=== PATIENT | male | born 1975 | race American Indian/Alaskan Native ===

== ENCOUNTER 2018-03-27 17:59 | Emergency (ER) | payer SELFPAY ==
[2018-03-27] MEDS ORDERED: TESSALON PERLES PO ONE (23:37)
[2018-03-27] MEDS ORDERED: IBUPROFEN PO ONE (23:37)
--- NOTE | 2018-03-28 00:26 | Emergency Department Report ---
- General Chief Complaint: Sore Throat Stated Complaint: COLD/BODY PAIN Time Seen by Provider: 03/27/18 23:16 Source: patient Mode of arrival: Ambulatory Limitations: No Limitations - History of Present Illness Initial Comments: This is a 42-year-old male nontoxic, well nourished in appearance, no acute signs of distress presents to the ED with c/o of productive cough, sore throat, body aches, rhinorrhea, nasal congestion x2 days. Patient describes productive cough as yellow mucus production. Patient denies any sick contact. Patient denies any recent travels, long car, recent hospital stays. Patient denies any calf pain or calf tenderness. Patient denies any chest pain, short of breath, fever, chills, nausea, vomiting, hemoptysis, numbness, tingling, headache or stiff neck. Patient denies any allergies or PMH. MD Complaint: cough, sore throat, rhinorrhea, nasal congestion -: days(s) (2) Severity: mild Severity scale (0 -10): 3 Quality: aching Consistency: constant Improves With: nothing Worsens With: nothing Associated Symptoms: rhinorrhea, nasal congestion, sore throat, cough. denies: fever, chills, myalgias, diaphoresis, headache, stiff neck, chest pain, shortness of breath, abdominal pain, nausea, vomiting, diarrhea, dysuria, rash, confusion, right sweats, weight loss, epistaxis, hoarseness, ear pain Treatments Prior to Arrival: none - Related Data Previous Rx's Medication Instructions Recorded Last Taken Type Azithromycin [Zithromax Z-ANNIA] 250 mg PO DAILY #6 tablet 03/28/18 Unknown Rx Benzonatate [Tessalon Perle] 100 mg PO Q8H PRN #20 capsule 03/28/18 Unknown Rx Ibuprofen [Motrin] 600 mg PO Q8H PRN #20 tablet 03/28/18 Unknown Rx Nystas/Diphen/Xyl Visc/Mylanta 15 ml MM Q4H PRN 5 Days ml 03/28/18 Unknown Rx [Magic Mouthwash] Allergies Allergy/AdvReac Type Severity Reaction Status Date / Time No Known Allergies Allergy Unverified 03/27/18 18:28 ED Review of Systems ROS: Stated complaint: COLD/BODY PAIN Other details as noted in HPI Constitutional: denies: chills, fever Eyes: denies: eye pain, eye discharge, vision change ENT: throat pain, congestion. denies: ear pain Respiratory: cough. denies: shortness of breath, wheezing Cardiovascular: denies: chest pain, palpitations Endocrine: no symptoms reported Gastrointestinal: denies: abdominal pain, nausea, diarrhea Genitourinary: denies: urgency, dysuria Musculoskeletal: denies: back pain, joint swelling, arthralgia Skin: denies: rash, lesions Neurological: denies: headache, weakness, paresthesias Psychiatric: denies: anxiety, depression Hematological/Lymphatic: denies: easy bleeding, easy bruising ED Past Medical Hx - Past Medical History Previous Medical History?: No - Surgical History Past Surgical History?: Yes Additional Surgical History: jaw - Social History Smoking Status: Current Every Day Smoker Substance Use Type: None - Medications Home Medications: Home Medications Medication Instructions Recorded Confirmed Last Taken Type Azithromycin [Zithromax Z-ANNIA] 250 mg PO DAILY #6 tablet 03/28/18 Unknown Rx Benzonatate [Tessalon Perle] 100 mg PO Q8H PRN #20 capsule 03/28/18 Unknown Rx Ibuprofen [Motrin] 600 mg PO Q8H PRN #20 tablet 03/28/18 Unknown Rx Nystas/Diphen/Xyl Visc/Mylanta 15 ml MM Q4H PRN 5 Days ml 03/28/18 Unknown Rx [Magic Mouthwash] ED Physical Exam - General Limitations: No Limitations General appearance: alert, in no apparent distress - Head Head exam: Present: atraumatic, normocephalic - Eye Eye exam: Present: normal appearance - Expanded ENT Exam Expanded Ear exam: Present: normal external inspection Mouth exam: Present: normal external inspection, tongue normal. Absent: drooling, trismus, muffled voice Teeth exam: Present: normal inspection Throat exam: Positive: tonsillar erythema, other (Uvula midline. no abscess or swelling noted.). Negative: tonsillomegaly, tonsillar exudate, R peritonsillar mass, L peritonsillar mass - Neck Neck exam: Present: normal inspection, full ROM. Absent: tenderness, meningismus, lymphadenopathy - Respiratory Respiratory exam: Present: normal lung sounds bilaterally. Absent: respiratory distress, wheezes, rales, rhonchi, stridor, chest wall tenderness, accessory muscle use, decreased breath sounds, prolonged expiratory - Cardiovascular Cardiovascular Exam: Present: regular rate, normal rhythm, normal heart sounds. Absent: irregular rhythm, systolic murmur, diastolic murmur, rubs, gallop - Extremities Exam Extremities exam: Present: normal inspection, full ROM - Back Exam Back exam: Present: normal inspection, full ROM - Neurological Exam Neurological exam: Present: alert, oriented X3 - Psychiatric Psychiatric exam: Present: normal affect, normal mood - Skin Skin exam: Present: warm, dry, intact, normal color. Absent: rash ED Course Vital Signs 03/27/18 18:26 Temperature 99.5 F Pulse Rate 92 H Respiratory 18 Rate Blood Pressure 142/95 O2 Sat by Pulse 99 Oximetry - Reevaluation(s) Reevaluation #1: 03/28/18 00:26 Patient is speaking in full sentences with no signs of distress noted. ED Medical Decision Making - Medical Decision Making This is a 42-year-old female that presents with bronchitis and pharyngitis. Patient is stable and was examined by me. Chest x-ray has been obtained and dictated by radiologist with normal exam. Patient is notified of x-ray results with no questions noted. Due to patient having symptoms of upper respiratory infection and worsening I will treat patient empirically with zpak. Patient was instructed to increase hydration, rest and take Motrin for fever episodes. Patient received motrin and tesslone perrls in the ED. Vitals stable. Patient is nonfebrile and normal heart rate. Patient was instructed Follow-up with a primary care doctor in 3-5 days or if symptoms worsen and continue return to emergency room as soon as possible. At time time of discharge, the patient does not seem toxic or ill in appearance. No acute signs of distress noted. Patient agrees to discharge treatment plan of care. No further questions noted by the patient. Critical care attestation.: If time is entered above; I have spent that time in minutes in the direct care of this critically ill patient, excluding procedure time. ED Disposition Clinical Impression: Bronchitis Pharyngitis Qualifiers: Pharyngitis/tonsillitis etiology: unspecified etiology Qualified Code(s): J02.9 - Acute pharyngitis, unspecified Disposition: - TO HOME OR SELFCARE Is pt being admited?: No Does the pt Need Aspirin: No Condition: Stable Instructions: Acute Bronchitis (ED), Pharyngitis (ED) Additional Instructions: Follow-up with a primary care doctor in 3-5 days or if symptoms worsen and continue return to emergency room as soon as possible. Prescriptions: Azithromycin [Zithromax Z-ANNIA] 250 mg PO DAILY #6 tablet Benzonatate [Tessalon Perle] 100 mg PO Q8H PRN #20 capsule PRN Reason: Cough Ibuprofen [Motrin] 600 mg PO Q8H PRN #20 tablet PRN Reason: Pain Nystas/Diphen/Xyl Visc/Mylanta [Magic Mouthwash] 15 ml MM Q4H PRN 5 Days ml PRN Reason: Sore Throat Referrals: PRIMARY CARE, [Primary Care Provider] - 3-5 Days FLY WASHINGTON MD [Staff Physician] - 3-5 Days [facility] [Outside] - 3-5 Days [facility] [Outside] - 3-5 Days Forms: Work/School Release Form(ED)
--- NOTE | 2018-03-28 00:45 | XRay Report ---
FINAL REPORT EXAM: XR CHEST ROUTINE 2V HISTORY: cough TECHNIQUE: PA and lateral views of the chest were submitted. FINDINGS: The lungs are clear. The heart size is normal. Pleural fluid is not seen. The skeletal structures bruno ear normal. IMPRESSION: Normal chest
[2018-03-28 01:22] VITALS: BP 132/93
== END 2018-03-28 01:21 | disposition home or self-care (01) ==
LOC: ED 17:59
DX: J40 Bronchitis, not specified as acute or chronic (principal); J02.9 Acute pharyngitis, unspecified; F17.200 Nicotine dependence, unspecified, uncomplicated
CPT/HCPCS: 71046

== ENCOUNTER 2018-06-05 16:23 | Emergency (ER) | payer OTHER ==
--- NOTE | 2018-06-05 19:40 | Emergency Department Report ---
Chief Complaint: Urogenital-Male Stated Complaint: FEVER/PRIVATE AREA PAIN Time Seen by Provider: 06/05/18 19:38 - HPI History of Present Illness: pt is c/o penile pain 2-3 months no discharge (+) dysuria sexually active, pt states uses protection subjective fever MSE screening note: Focused history and physical exam performed. Due to findings the following was ordered: UA ED Disposition for MSE Condition: Stable
[2018-06-05 20:53] LABS: Bilirubin,Urine NEG (Negative); Blood,Urine NEG (Negative); Color,Urine Yellow (Yellow); Mucus,Urine FEW /HPF; Protein,Urine <15 mg/dL mg/dL (Negative)
[2018-06-05] MEDS ORDERED: VIBRAMYCIN PO ONE (21:05)
[2018-06-05] MEDS ORDERED: ROCEPHIN IM ONE (21:05)
[2018-06-05] MEDS ORDERED: XYLOCAINE 1% MPF 5 mL INFILTRATI ONE (21:05)
--- NOTE | 2018-06-05 21:11 | Emergency Department Report ---
ED Male HPI - General Chief complaint: Urogenital-Male Stated complaint: FEVER/PRIVATE AREA PAIN Time Seen by Provider: 06/05/18 19:38 Source: patient Mode of arrival: Ambulatory Limitations: No Limitations - History of Present Illness Initial comments: Mr. Barth is a 42 yo male who presents with dysuria, penile and testicle pain for one week. Subjective fever. No hematuria. No penile discharge. No swelling in the region. Mr. Barth is single. Does have unprotected sex. No hx of STD exposure. MD Complaint: testicle pain, other (dysuria) -: Gradual, week(s) (1) Location: penis, right testicle, left testicle Severity: mild Quality: burning Consistency: constant Worsens with: urination dysuria, fever. denies: discharge, swelling, mass, rash, blood in urine, nausea/vomiting - Related Data Previous Rx's Medication Instructions Recorded Last Taken Type Azithromycin [Zithromax Z-ANNIA] 250 mg PO DAILY #6 tablet 03/28/18 Unknown Rx Benzonatate [Tessalon Perle] 100 mg PO Q8H PRN #20 capsule 03/28/18 Unknown Rx Ibuprofen [Motrin] 600 mg PO Q8H PRN #20 tablet 03/28/18 Unknown Rx Nystas/Diphen/Xyl Visc/Mylanta 15 ml MM Q4H PRN 5 Days ml 03/28/18 Unknown Rx [Magic Mouthwash] Doxycycline [Vibramycin CAP] 100 mg PO Q12HR 14 Days #28 capsule 06/05/18 Unknown Rx Allergies Allergy/AdvReac Type Severity Reaction Status Date / Time No Known Allergies Allergy Verified 06/05/18 16:24 ED Review of Systems ROS: Stated complaint: FEVER/PRIVATE AREA PAIN Other details as noted in HPI Comment: All other systems reviewed and negative Constitutional: fever, malaise Genitourinary: dysuria ED Past Medical Hx - Past Medical History Previous Medical History?: No - Surgical History Past Surgical History?: Yes Additional Surgical History: jaw sx ? - Social History Smoking Status: Never Smoker Substance Use Type: None - Medications Home Medications: Home Medications Medication Instructions Recorded Confirmed Last Taken Type Azithromycin [Zithromax Z-ANNIA] 250 mg PO DAILY #6 tablet 03/28/18 Unknown Rx Benzonatate [Tessalon Perle] 100 mg PO Q8H PRN #20 capsule 03/28/18 Unknown Rx Ibuprofen [Motrin] 600 mg PO Q8H PRN #20 tablet 03/28/18 Unknown Rx Nystas/Diphen/Xyl Visc/Mylanta 15 ml MM Q4H PRN 5 Days ml 03/28/18 Unknown Rx [Magic Mouthwash] Doxycycline [Vibramycin CAP] 100 mg PO Q12HR 14 Days #28 capsule 06/05/18 Unknown Rx ED Physical Exam - General Limitations: No Limitations General appearance: alert, in no apparent distress - Head Head exam: Present: atraumatic, normocephalic - Eye Eye exam: Present: normal appearance - ENT ENT exam: Present: mucous membranes moist - Neck Neck exam: Present: normal inspection - Respiratory Respiratory exam: Present: normal lung sounds bilaterally. Absent: respiratory distress, wheezes, rales, rhonchi - Cardiovascular Cardiovascular Exam: Present: regular rate, normal rhythm, normal heart sounds. Absent: systolic murmur, diastolic murmur, rubs, gallop - GI/Abdominal GI/Abdominal exam: Present: soft, normal bowel sounds. Absent: distended, tenderness, guarding, rebound - Rectal Rectal exam: Present: deferred - Extremities Exam Extremities exam: Present: normal inspection - Back Exam Back exam: Present: normal inspection - Neurological Exam Neurological exam: Present: alert, oriented X3 - Psychiatric Psychiatric exam: Present: normal affect, normal mood - Skin Skin exam: Present: warm, dry, intact, normal color. Absent: rash ED Course Vital Signs 06/05/18 19:38 Temperature 98 F Pulse Rate 90 Respiratory 18 Rate Blood Pressure 133/88 O2 Sat by Pulse 98 Oximetry ED Medical Decision Making - Lab Data Laboratory Results - last 24 hr 06/05/18 20:25 Urine Color Yellow Urine Turbidity Clear Urine pH 5.0 Ur Specific [place] 1.033 H Urine Protein <15 mg/dl Urine Glucose (UA) Neg Urine Ketones Neg Urine Blood Neg Urine Nitrite Neg Urine Bilirubin Neg Urine Urobilinogen 4.0 Ur Leukocyte Esterase Neg Urine WBC (Auto) 1.0 Urine RBC (Auto) 4.0 U Epithel Cells (Auto) < 1.0 Urine Mucus Few - Medical Decision Making Dysuria with genital discomfort, suspect urethritis vs epididymitis versus prostatitis. Referred to urologist. Suggested STD testing. Given IM ceftriaxone and doxycycline in the ED. Prescribed doxycycline. Critical care attestation.: If time is entered above; I have spent that time in minutes in the direct care of this critically ill patient, excluding procedure time. ED Disposition Clinical Impression: Urethritis, Epididymitis Disposition: TO HOME OR SELFCARE Is pt being admited?: No Does the pt Need Aspirin: No Condition: Stable Instructions: Epididymitis (ED), Nonspecific Urethritis in Men (ED) Prescriptions: Doxycycline [Vibramycin CAP] 100 mg PO Q12HR 14 Days #28 capsule Referrals: CLAUDE GARCIA MD [Staff Physician] - 3-5 Days Forms: STI Treatment and Prevention
[2018-06-05 21:25] VITALS: BP 122/52
== END 2018-06-05 21:38 | disposition home or self-care (01) ==
LOC: ED 16:23
DX: N45.1 Epididymitis (principal); N34.2 Other urethritis
CPT/HCPCS: 81001; 96372; 99283; J0696

== ENCOUNTER 2019-02-24 09:30 | Emergency (ER) | payer SELFPAY ==
[2019-02-24 09:39] VITALS: BP 135/85
--- NOTE | 2019-02-24 11:21 | Emergency Department Report ---
ED General Adult HPI - General Chief complaint: Extremity Injury, Upper Stated complaint: FINGER INJURY/PRIVATE AREA Time Seen by Provider: 02/24/19 11:04 Source: patient Mode of arrival: Ambulatory Limitations: No Limitations - History of Present Illness Initial comments: 43-year-old -[place] female patient complains of left thumb pain after slamming his thumb in a door last night and intermittent testicular pain disorders 1 year. He rates his thumb pain as a 10/10 in severity. He rates his testicular pain as a 7/10 in severity and denies any dysuria/urinary frequency, penile discharge, fever, or swollen lymph nodes in his groin. Patient states he felt like his testicles are swollen. He denies any history of STI's. - Related Data Previous Rx's Medication Instructions Recorded Last Taken Type Azithromycin [Zithromax Z-ANNIA] 250 mg PO DAILY #6 tablet 03/28/18 Unknown Rx Benzonatate [Tessalon Perle] 100 mg PO Q8H PRN #20 capsule 03/28/18 Unknown Rx Ibuprofen [Motrin] 600 mg PO Q8H PRN #20 tablet 03/28/18 Unknown Rx Nystas/Diphen/Xyl Visc/Mylanta 15 ml MM Q4H PRN 5 Days ml 03/28/18 Unknown Rx [Magic Mouthwash] DOXYCYCLINE Hyclate [Vibramycin 100 mg PO Q12HR 14 Days #28 capsule 06/05/18 Unknown Rx CAP] Ibuprofen [Motrin 800 MG tab] 800 mg PO Q8HR PRN #21 tablet 02/24/19 Unknown Rx Allergies Allergy/AdvReac Type Severity Reaction Status Date / Time No Known Allergies Allergy Verified 02/24/19 09:32 ED Review of Systems ROS: Stated complaint: FINGER INJURY/PRIVATE AREA Other details as noted in HPI Comment: All other systems reviewed and negative Gastrointestinal: denies: abdominal pain Genitourinary: as per HPI Musculoskeletal: as per HPI ED Past Medical Hx - Past Medical History Previous Medical History?: No - Surgical History Past Surgical History?: Yes Additional Surgical History: jaw sx ? - Social History Smoking Status: Light Tobacco Smoker Substance Use Type: None - Medications Home Medications: Home Medications Medication Instructions Recorded Confirmed Last Taken Type Azithromycin [Zithromax Z-ANINA] 250 mg PO DAILY #6 tablet 03/28/18 Unknown Rx Benzonatate [Tessalon Perle] 100 mg PO Q8H PRN #20 capsule 03/28/18 Unknown Rx Ibuprofen [Motrin] 600 mg PO Q8H PRN #20 tablet 03/28/18 Unknown Rx Nystas/Diphen/Xyl Visc/Mylanta 15 ml MM Q4H PRN 5 Days ml 03/28/18 Unknown Rx [Magic Mouthwash] DOXYCYCLINE Hyclate [Vibramycin 100 mg PO Q12HR 14 Days #28 capsule 06/05/18 Unknown Rx CAP] Ibuprofen [Motrin 800 MG tab] 800 mg PO Q8HR PRN #21 tablet 02/24/19 Unknown Rx ED Physical Exam - General Limitations: No Limitations General appearance: alert, in no apparent distress - Head Head exam: Present: atraumatic, normocephalic - Eye Eye exam: Present: normal appearance - ENT ENT exam: Present: mucous membranes moist - Neck Neck exam: Present: normal inspection - Respiratory Respiratory exam: Present: normal lung sounds bilaterally. Absent: respiratory distress - Cardiovascular Cardiovascular Exam: Present: regular rate, normal rhythm. Absent: systolic murmur, diastolic murmur, rubs, gallop - GI/Abdominal GI/Abdominal exam: Present: soft, normal bowel sounds. Absent: distended, tenderness - Rectal Rectal exam: Present: deferred - exam: Present: testicular tenderness (tenderness noted to right testicle), other (no lesions, swelling, or erythema noted of testicles or penis). Absent: urethral discharge, scrotal swelling - Extremities Exam Extremities exam: Present: other (mild swelling noted of distal portion of left thumb with significant tenderness to palpation. Patient's range of motion is limited by pain. Normal capillary refill and sensation of thumb noted.) - Neurological Exam Neurological exam: Present: alert, oriented X3 - Psychiatric Psychiatric exam: Present: normal affect, normal mood - Skin Skin exam: Present: warm, dry, intact, normal color. Absent: rash ED Course Vital Signs 02/24/19 09:37 Temperature 98.5 F Pulse Rate 97 H Respiratory 18 Rate Blood Pressure 135/85 O2 Sat by Pulse 98 Oximetry ED Medical Decision Making - Lab Data Lab Results 02/24/19 Range/Units 12:51 Urine Color Yellow (Yellow) Urine Turbidity Clear (Clear) Urine pH 7.0 (5.0-7.0) Ur Specific [place] 1.012 (1.003-1.030) Urine Protein <15 mg/dl (Negative) mg/dL Urine Glucose (UA) Neg (Negative) mg/dL Urine Ketones Neg (Negative) mg/dL Urine Blood Neg (Negative) Urine Nitrite Neg (Negative) Urine Bilirubin Neg (Negative) Urine Urobilinogen < 2.0 (<2.0) mg/dL Ur Leukocyte Esterase Neg (Negative) Urine WBC (Auto) 1.0 (0.0-6.0) /HPF Urine RBC (Auto) 1.0 (0.0-6.0) /HPF U Epithel Cells (Auto) < 1.0 (0-13.0) /HPF Urine Bacteria (Auto) 1+ (Negative) /HPF Urine Mucus Few /HPF - Radiology Data Radiology results: report reviewed LEFT THUMB 3 VIEWS INDICATION / CLINICAL INFORMATION: left thumb slammed in door COMPARISON: None available. FINDINGS: BONES / JOINT(S): There is a very small ossification adjacent to the interphalangeal joint of the left thumb along the lateral margin. This appears well-corticated and is likely an accessory ossification. The possibility that this could represent an avulsion fracture is considered. There is no dislocation. No fracture is seen otherwise. No significant arthritis. SOFT TISSUES: No significant abnormality. ULTRASOUND TESTICULAR DOPPLER COMPLETE HISTORY: Testicular pain TECHNIQUE: Transcranial ultrasound with color and spectral Doppler interrogation. FINDINGS: The testes are normal size, contour and echotexture. The right testicle measures 4.3 x 1.8 x 3.2 cm. The left testicle measures 3.8 x 1.4 x 2.8 cm. No testicular mass or cyst. No hyperemia on color Doppler. The epididymides are normal size, contour and echotexture bilaterally. No significant hydrocele or varicocele. Spectral Doppler waveforms demonstrate arterial flow to both testes. IMPRESSION: Unremarkable testicular ultrasound. - Medical Decision Making 43-year-old male here today with complaints of left thumb pain after slamming thumb in a door a night and intermittent testicular pain 1 year. He denies any dysuria or penile discharge. Patient complained of testicular swelling and lesions, however no lesions or swelling noted on exam. Testicular ultrasound is negative for acute findings. UA is wnl. Vital signs WNL. Recommend follow-up with urology. Will treat him as a bone contusion and will DC with rice method for treatment. Tricked return precautions were discussed in detail with patient who states understanding. Critical care attestation.: If time is entered above; I have spent that time in minutes in the direct care of this critically ill patient, excluding procedure time. ED Disposition Clinical Impression: Contusion of bone, Testicular pain Disposition: TO HOME OR SELFCARE Is pt being admited?: No Condition: Stable Instructions: Contusion in Adults (ED), Testicle Pain (ED) Prescriptions: Ibuprofen [Motrin 800 MG tab] 800 mg PO Q8HR PRN #21 tablet PRN Reason: Pain , Severe (7-10) Referrals: PRIMARY CAREMD [Primary Care Provider] - 3-5 Days XAVI MONTEJO MD [Staff Physician] - 3-5 Days
[2019-02-24] MEDS ORDERED: IBUPROFEN 800 MG TAB PO ONE (11:43)
--- NOTE | 2019-02-24 12:32 | XRay Report ---
LEFT THUMB 3 VIEWS INDICATION / CLINICAL INFORMATION: left thumb slammed in door COMPARISON: None available. FINDINGS: BONES / JOINT(S): There is a very small ossification adjacent to the interphalangeal joint of the lef t thumb along the lateral margin. This appears well-corticated and is likely an accessory ossificatio n. The possibility that this could represent an avulsion fracture is considered. There is no dislocat ion. No fracture is seen otherwise. No significant arthritis. SOFT TISSUES: No significant abnormality. ADDITIONAL FINDINGS: None. Signer Name: Sunil Grimaldo MD Signed: 02/24/2019 12:28 PM Workstation Name: [id number]
--- NOTE | 2019-02-24 12:46 | Ultrasound Report ---
ULTRASOUND TESTICULAR DOPPLER COMPLETE HISTORY: Testicular pain TECHNIQUE: Transcranial ultrasound with color and spectral Doppler interrogation. FINDINGS: The testes are normal size, contour and echotexture. The right testicle measures 4.3 x 1.8 x 3.2 cm. The left testicle measures 3.8 x 1.4 x 2.8 cm. No testicular mass or cyst. No hyperemia on color Dopp ler. The epididymides are normal size, contour and echotexture bilaterally. No significant hydrocele or varicocele. Spectral Doppler waveforms demonstrate arterial flow to both testes. IMPRESSION: Unremarkable testicular ultrasound. Signer Name: Sheldon Billy Jr, MD Signed: 02/24/2019 12:41 PM Workstation Name: [id number]
[2019-02-24 14:18] LABS: Bacteria,Urine 1+ /HPF (Negative); Bilirubin,Urine NEG (Negative); Blood,Urine NEG (Negative); Color,Urine Yellow (Yellow); Mucus,Urine FEW /HPF; Protein,Urine <15 mg/dL mg/dL (Negative); Urobilinogen,Urine < 2.0 mg/dL (<2.0)
== END 2019-02-24 14:38 | disposition home or self-care (01) ==
LOC: ED 09:30
DX: S60.011A Contusion of right thumb without damage to nail, initial encounter (principal); N50.811 Right testicular pain; F17.200 Nicotine dependence, unspecified, uncomplicated; Z98.890 Other specified postprocedural states; Z79.1 Long term (current) use of non-steroidal anti-inflammatories (NSAID); Z79.899 Other long term (current) drug therapy; X58.XXXA Exposure to other specified factors, initial encounter; Y93.89 Activity, other specified; Y92.89 Other specified places as the place of occurrence of the external cause; Y99.8 Other external cause status
CPT/HCPCS: 81001; 93975

== ENCOUNTER 2019-06-08 14:18 | Emergency (ER) | payer SELFPAY ==
--- NOTE | 2019-06-08 14:37 | Emergency Department Report ---
Blank Doc - Documentation Documentation: 43-year-old male that presents with testicular pain with swelling, cough, SOB, and fever. This initial assessment/diagnostic orders/clinical plan/treatment(s) is/are subject to change based on patient's health status, clinical progression and re- assessment by fellow clinical providers in the ED. Further treatment and workup at subsequent clinical providers discretion. Patient/guardians urged not to elope from the ED as their condition may be serious if not clinically assessed and managed. Initial orders include: 1- Patient sent to [facility] for further evaluation and treatment 2- cxr 3- ua 4- testicular doppler
[2019-06-08 15:26] LABS: Bilirubin,Urine NEG (Negative); Blood,Urine SM (Negative); Color,Urine Amber (Yellow); Mucus,Urine FEW /HPF
--- NOTE | 2019-06-08 16:09 | XRay Report ---
CHEST 2 VIEWS INDICATION / CLINICAL INFORMATION: cough. COMPARISON: 03/27/2018 FINDINGS: SUPPORT DEVICES: None. HEART / MEDIASTINUM: No significant abnormality. LUNGS / PLEURA: No significant pulmonary or pleural abnormality. No pneumothorax. ADDITIONAL FINDINGS: No significant additional findings. IMPRESSION: No significant abnormality or change from 03/27/2018 Signer Name: Meir Cuevas MD FACR Signed: 06/08/2019 4:05 PM Workstation Name: [id number]
--- NOTE | 2019-06-08 18:15 | Ultrasound Report ---
ULTRASOUND SCROTUM INDICATION / CLINICAL INFORMATION: bilateral testicular pain. COMPARISON: Scrotal ultrasound 02/24/2019 FINDINGS -- RIGHT TESTIS: Size = 4.7 x 1.6 x 2.7 cm. - Appearance: No significant abnormality. - Cyst or Mass: None. - Color Doppler Flow: No significant abnormality. EPIDIDYMIS: Normal size and vascularity. There is a 4 mm epididymal head cyst versus spermatocele. HYDROCELE: None. VARICOCELE: None demonstrated. FINDINGS -- LEFT TESTIS: Size = 4.3 x 1.5 x 3.2 cm. - Appearance: No significant abnormality. - Cyst or Mass: None. - Color Doppler Flow: No significant abnormality. EPIDIDYMIS: Normal size and vascularity. There is a 5 mm epididymal head cyst versus spermatocele. HYDROCELE: None. VARICOCELE: None demonstrated. ADDITIONAL FINDINGS: None. IMPRESSION: No significant abnormality. Signer Name: Samuel Prieto MD Signed: 06/08/2019 6:11 PM Workstation Name: [id number]
--- NOTE | 2019-06-08 18:30 | Emergency Department Report ---
Minor Respiratory - HPI Chief Complaint: Upper Respiratory Infection Stated Complaint: FLU SYM/ Time Seen by Provider: 06/08/19 14:35 Duration: 2 Days Pain Location: Nose Severity: moderate Minor Respiratory: Yes Able to Tolerate Fluids, Yes Cough, Yes Sick Contacts, Yes Fever, No Rhinorrhea, No Sore Throat, No Ear Pain, No Hemoptysis, No Chest Pain, No Shortness of Breath Other History: This is a 43-year-old black male who presents to the emergency room with a headache, fever, cough for 2 to 3 days. No significant past medical history. Currently taken Tylenol with minimal relief of symptoms. Patient also reports testicular and penile pain. No recent travel. Denies sick contacts, nausea, vomiting, diarrhea, abdominal pain, and back pain. ED Review of Systems ROS: Stated complaint: FLU SYM/ Other details as noted in HPI Constitutional: chills, fever ENT: congestion. denies: ear pain, throat pain Respiratory: cough. denies: shortness of breath, wheezing Cardiovascular: denies: chest pain, palpitations Gastrointestinal: denies: abdominal pain, nausea, diarrhea Genitourinary: testicular pain. denies: urgency, dysuria Musculoskeletal: denies: back pain, joint swelling, arthralgia Skin: denies: rash, lesions Neurological: headache. denies: weakness, paresthesias Psychiatric: denies: anxiety, depression ED Past Medical Hx - Surgical History Additional Surgical History: jaw sx ?2003/2004 - Social History Smoking Status: Light Tobacco Smoker Substance Use Type: None - Medications Home Medications: Home Medications Medication Instructions Recorded Confirmed Last Taken Type Azithromycin [Zithromax Z-ANNIA] 250 mg PO DAILY #6 tablet 03/28/18 Unknown Rx Benzonatate [Tessalon Perle] 100 mg PO Q8H PRN #20 capsule 03/28/18 Unknown Rx Ibuprofen [Motrin] 600 mg PO Q8H PRN #20 tablet 03/28/18 Unknown Rx Nystas/Diphen/Xyl Visc/Mylanta 15 ml MM Q4H PRN 5 Days ml 03/28/18 Unknown Rx [Magic Mouthwash] Ibuprofen [Motrin 800 MG tab] 800 mg PO Q8HR PRN #21 tablet 02/24/19 Unknown Rx DOXYCYCLINE Hyclate [Vibramycin 100 mg PO Q12HR 14 Days #28 capsule 06/08/19 Unknown Rx CAP] Minor Respiratory Exam - Exam General: Vital signs noted. No distress. Alert and acting appropriately. HEENT: Yes Pharyngeal Erythema (Erythematous posterior pharynx with uvula midline), Yes Moist Mucous Membranes, Yes Rhinorrhea (Turbinates congested with clear discharge), No Pharyngeal Exudates, No Conjuctival Injection, No Frontal Tenderness, No Maxillary Tenderness Ear: Neither TM Bulge, Neither TM Erythema, Neither EAC Pain, Neither EAC Discharge Neck: Yes Supple, No Adenopathy Lungs: Yes Good Air Exchange, No Wheezes, No Ronchi, No Stridor, No Cough, No Labored Respirations, No Retractions, No Use of Accessory Muscles, No Other Abnormal Lung Sounds Heart: Yes Regular, No Murmur Abdomen: Yes Normal Bowel Sounds, No Tenderness, No Peritoneal Signs Skin: No Rash, No Edema Neurologic: Alert and oriented, no deficits. Musculoskeletal: Unremarkable. ED Course Vital Signs 06/08/19 06/08/19 14:35 17:59 Temperature 99.7 F H 99.2 F Pulse Rate 118 H 102 H Respiratory 20 16 Rate Blood Pressure 141/89 O2 Sat by Pulse 98 100 Oximetry ED Medical Decision Making - Lab Data Lab Results 06/08/19 Range/Units 15:04 Urine Color Lavinia (Yellow) Urine Turbidity Slightly-cloudy (Clear) Urine pH 6.0 (5.0-7.0) Ur Specific Leroy 1.017 (1.003-1.030) Urine Protein 30 mg/dl (Negative) mg/dL Urine Glucose (UA) Neg (Negative) mg/dL Urine Ketones Neg (Negative) mg/dL Urine Blood Sm (Negative) Urine Nitrite Neg (Negative) Urine Bilirubin Neg (Negative) Urine Urobilinogen 4.0 (<2.0) mg/dL Ur Leukocyte Esterase Neg (Negative) Urine WBC (Auto) 1.0 (0.0-6.0) /HPF Urine RBC (Auto) 2.0 (0.0-6.0) /HPF Urine Mucus Few /HPF - Radiology Data Radiology results: report reviewed ULTRASOUND SCROTUM INDICATION / CLINICAL INFORMATION: bilateral testicular pain. COMPARISON: Scrotal ultrasound 02/24/2019 FINDINGS -- RIGHT TESTIS: Size = 4.7 x 1.6 x 2.7 cm. - Appearance: No significant abnormality. - Cyst or Mass: None. - Color Doppler Flow: No significant abnormality. EPIDIDYMIS: Normal size and vascularity. There is a 4 mm epididymal head cyst versus spermatocele. HYDROCELE: None. VARICOCELE: None demonstrated. FINDINGS -- LEFT TESTIS: Size = 4.3 x 1.5 x 3.2 cm. - Appearance: No significant abnormality. - Cyst or Mass: None. - Color Doppler Flow: No significant abnormality. EPIDIDYMIS: Normal size and vascularity. There is a 5 mm epididymal head cyst versus spermatocele. HYDROCELE: None. VARICOCELE: None demonstrated. ADDITIONAL FINDINGS: None. IMPRESSION: No significant abnormality. CHEST 2 VIEWS INDICATION / CLINICAL INFORMATION: cough. COMPARISON: 03/27/2018 FINDINGS: SUPPORT DEVICES: None. HEART / MEDIASTINUM: No significant abnormality. LUNGS / PLEURA: No significant pulmonary or pleural abnormality. No pneumothora x. ADDITIONAL FINDINGS: No significant additional findings. IMPRESSION: No significant abnormality or change from 03/27/2018 - Medical Decision Making This is a 43-year-old male who presents to the emergency room with upper respiratory symptoms and testicular pain for 2 to 3 days. Vitals are stable and patient in no acute distress. Work-up: Urinalysis, testicular ultrasound, and chest x-ray. Small amount of blood on urinalysis. Normal chest x-ray and testicular ultrasound. Abdomen nontender and negative CVA tenderness on exam. Mild congestion. Patient will be treated for an upper respiratory symptoms with [id number] medications. Start antibiotics for urethritis. Given Rocephin and azithromycin empirically. Start doxycycline. Follow-up with primary care doctor in 2 to 3 days. Patient given strict return instructions. Patient discharged home stable. Critical care attestation.: If time is entered above; I have spent that time in minutes in the direct care of this critically ill patient, excluding procedure time. ED Disposition Clinical Impression: Urethritis Upper respiratory infection Qualifiers: URI type: acute nasopharyngitis (common cold) Qualified Code(s): J00 - Acute nasopharyngitis [common cold] Disposition: TO HOME OR SELFCARE Is pt being admited?: No Condition: Stable Instructions: Nonspecific Urethritis in Men (ED), Upper Respiratory Infection (ED) Additional Instructions: Increase fluid intake and rest. Wash hands frequently. Continue taking Tylenol or ibuprofen to control fever. Follow up with Primary Care Provider. Return to ER if fever, SOB, or difficulty breathing after 48 hours of supportive care. Prescriptions: DOXYCYCLINE Hyclate [Vibramycin CAP] 100 mg PO Q12HR 14 Days #28 capsule Referrals: [facility] [Outside] - 3-5 Days [facility] [Outside] - 3-5 Days [facility] [Outside] - 3-5 Days Forms: STI Treatment and Prevention Time of Disposition: 19:04 ED Male EXAM - Physical Exam Male Genital Exam: normal genitalia
[2019-06-08] MEDS ORDERED: AZITHROMYCIN 250 MG TAB PO ONE (19:02)
[2019-06-08] MEDS ORDERED: LIDOCAINE-MPF (1%) 10 MG/1 ML VIAL 5 ML INFILTRATI ONE (19:02)
[2019-06-08] MEDS ORDERED: ACETAMINOPHEN 325 MG TAB ONE (19:43)
[2019-06-08] MEDS ORDERED: ACETAMINOPHEN 325 MG TAB PO ONE (19:45)
[2019-06-08 19:52] VITALS: BP 141/96
== END 2019-06-08 19:48 | disposition home or self-care (01) ==
LOC: ED 14:18
DX: N34.2 Other urethritis (principal); J06.9 Acute upper respiratory infection, unspecified; F17.200 Nicotine dependence, unspecified, uncomplicated; Z98.890 Other specified postprocedural states; Z79.1 Long term (current) use of non-steroidal anti-inflammatories (NSAID); Z79.2 Long term (current) use of antibiotics; Z79.899 Other long term (current) drug therapy
CPT/HCPCS: 71046; 81001; 93975; 96372; 99284; J0696

== ENCOUNTER 2019-06-28 08:13 | Emergency (ER) | payer SELFPAY ==
[2019-06-28 08:28] VITALS: BP 131/88
--- NOTE | 2019-06-28 10:08 | XRay Report ---
RIGHT FIRST TOE 3 VIEWS INDICATION / CLINICAL INFORMATION: Right first toe swelling. COMPARISON: None available. FINDINGS: BONES and JOINT(S): No acute fracture or subluxation. No significant arthritis. SOFT TISSUES: Mild generalized edema is seen along the first toe without an additional significant ab normality. ADDITIONAL FINDINGS: None. IMPRESSION: Mild right first toe edema. Signer Name: Art Jung MD Signed: 06/28/2019 10:04 AM Workstation Name: [id number]
--- NOTE | 2019-06-28 10:34 | Emergency Department Report ---
ED General Adult HPI - General Chief complaint: Extremity Problem,Nontraumatic Stated complaint: RT FOOT PAIN Time Seen by Provider: 06/28/19 09:16 Source: patient Mode of arrival: Wheelchair Limitations: No Limitations - History of Present Illness Initial comments: 43-year-old male presents emergency department complaining of painful atraumatic right toe joint pain and swelling which began after he started to consume more wine nuts and red meat. He reports no known trauma. Ports no fever, chills, sweats no bleeding no no broken skin no has he tried any palliative factors. Pain gets worse with standing touching him wearing shoes. Radiation: non-radiation Improves with: none Worsens with: none Associated Symptoms: denies other symptoms. denies: loss of appetite, malaise, nausea/vomiting, shortness of breath, syncope Treatments Prior to Arrival: none - Related Data Previous Rx's Medication Instructions Recorded Last Taken Type Azithromycin [Zithromax Z-ANNIA] 250 mg PO DAILY #6 tablet 03/28/18 Unknown Rx Benzonatate [Tessalon Perle] 100 mg PO Q8H PRN #20 capsule 03/28/18 Unknown Rx Ibuprofen [Motrin] 600 mg PO Q8H PRN #20 tablet 03/28/18 Unknown Rx Nystas/Diphen/Xyl Visc/Mylanta 15 ml MM Q4H PRN 5 Days ml 03/28/18 Unknown Rx [Magic Mouthwash] Ibuprofen [Motrin 800 MG tab] 800 mg PO Q8HR PRN #21 tablet 02/24/19 Unknown Rx DOXYCYCLINE Hyclate [Vibramycin 100 mg PO Q12HR 14 Days #28 capsule 06/08/19 Unknown Rx CAP] Indomethacin [Indocin] 25 mg PO Q8H #20 capsule 06/28/19 Unknown Rx Allergies Allergy/AdvReac Type Severity Reaction Status Date / Time No Known Allergies Allergy Verified 02/24/19 09:32 ED Review of Systems ROS: Stated complaint: RT FOOT PAIN Other details as noted in HPI Constitutional: denies: chills, fever Eyes: denies: eye pain, eye discharge, vision change ENT: denies: ear pain, throat pain Respiratory: denies: cough, shortness of breath, wheezing Cardiovascular: denies: chest pain, palpitations Endocrine: no symptoms reported Gastrointestinal: denies: abdominal pain, nausea, diarrhea Genitourinary: denies: urgency, dysuria Musculoskeletal: joint swelling. denies: back pain, arthralgia Skin: denies: rash, lesions Neurological: denies: headache, weakness, paresthesias Psychiatric: denies: anxiety, depression Hematological/Lymphatic: denies: easy bleeding, easy bruising ED Past Medical Hx - Past Medical History Previous Medical History?: No - Surgical History Past Surgical History?: Yes Additional Surgical History: Jaw surgery - Social History Smoking Status: Current Some Day Smoker Substance Use Type: None - Medications Home Medications: Home Medications Medication Instructions Recorded Confirmed Last Taken Type Azithromycin [Zithromax Z-ANNIA] 250 mg PO DAILY #6 tablet 03/28/18 Unknown Rx Benzonatate [Tessalon Perle] 100 mg PO Q8H PRN #20 capsule 03/28/18 Unknown Rx Ibuprofen [Motrin] 600 mg PO Q8H PRN #20 tablet 03/28/18 Unknown Rx Nystas/Diphen/Xyl Visc/Mylanta 15 ml MM Q4H PRN 5 Days ml 03/28/18 Unknown Rx [Magic Mouthwash] Ibuprofen [Motrin 800 MG tab] 800 mg PO Q8HR PRN #21 tablet 02/24/19 Unknown Rx DOXYCYCLINE Hyclate [Vibramycin 100 mg PO Q12HR 14 Days #28 capsule 06/08/19 Unknown Rx CAP] Indomethacin [Indocin] 25 mg PO Q8H #20 capsule 06/28/19 Unknown Rx ED Physical Exam - General Limitations: No Limitations General appearance: alert, in no apparent distress - Head Head exam: Present: atraumatic, normocephalic - Eye Eye exam: Present: normal appearance - ENT ENT exam: Present: mucous membranes moist - Neck Neck exam: Present: normal inspection - Respiratory Respiratory exam: Present: normal lung sounds bilaterally. Absent: respiratory distress - Cardiovascular Cardiovascular Exam: Present: regular rate, normal rhythm. Absent: systolic murmur, diastolic murmur, rubs, gallop - GI/Abdominal GI/Abdominal exam: Present: soft, normal bowel sounds - Rectal Rectal exam: Present: deferred - Extremities Exam Extremities exam: Present: normal inspection, tenderness, joint swelling - Expanded Lower Extremity Exam Right Foot/Toe exam: Present: tenderness, swelling Neuro vascular tendon exam: Absent: pulse deficit, abnormal cap refill, motor deficit, sensory deficit 1 - Swelling tenderness to this region. With some mild erythema evolving as well. - Back Exam Back exam: Present: normal inspection - Neurological Exam Neurological exam: Present: alert, oriented X3 - Psychiatric Psychiatric exam: Present: normal affect, normal mood - Skin Skin exam: Present: warm, dry, intact, normal color. Absent: rash ED Course Vital Signs 06/28/19 08:23 Temperature 98.0 F Pulse Rate 94 H Respiratory 20 Rate Blood Pressure 131/88 O2 Sat by Pulse 100 Oximetry Critical care attestation.: If time is entered above; I have spent that time in minutes in the direct care of this critically ill patient, excluding procedure time. ED Disposition Clinical Impression: Podagra Disposition: DC-01 TO HOME OR SELFCARE Is pt being admited?: No Does the pt Need Aspirin: No Condition: Stable Instructions: Acute Gouty Arthritis (ED) Prescriptions: Indomethacin [Indocin] 25 mg PO Q8H #20 capsule Referrals: PRIMARY CAREMD [Primary Care Provider] - 3-5 Days DELICIA METZ MD [Staff Physician] - 3-5 Days MARK LALA DPM [Staff Physician] - 3-5 Days
== END 2019-06-28 10:42 | disposition home or self-care (01) ==
LOC: ED 08:13
DX: M10.9 Gout, unspecified (principal); F17.200 Nicotine dependence, unspecified, uncomplicated; Z98.890 Other specified postprocedural states; Z79.899 Other long term (current) drug therapy
CPT/HCPCS: 99282